=== PATIENT | male | born 1985 | race Caucasian/White ===

== ENCOUNTER 2021-09-24 12:00 | Emergency (ER) | payer MEDICAID ==
[~2021-09-24] VITALS: Ht 170.2 cm; Wt 96.6 kg
[2021-09-24 12:40] VITALS: BP 124/76
--- NOTE | 2021-09-24 12:45 | NUR ---
PT AMBULATED WITH STEADY GAIT TO [facility]
--- NOTE | 2021-09-24 13:00 | NUR ---
36 Y/O MALE BIB SELF C/O OF DIZZINESS, NAUSEA, ALONSO X4DAYS. BS 274 NKA PMH: "MAYBE DIABETES"
[2021-09-24 14:11] LABS: BASOPHILS # (AUTO) 0.1 K/uL (0.00-0.22); BASOPHILS % (AUTO) 0.7 % (0.0-2.0); EOSINOPHILS # (AUTO) 0.1 K/uL (0-0.4); EOSINOPHILS % (AUTO) 0.7 % (0.0-4.0); HEMATOCRIT 49.6 % (36-52); HEMOGLOBIN 17.3 g/dL (12.0-18.0); LYMPHOCYTES # (AUTO) 2.5 K/uL (2.0-11.5); LYMPHOCYTES % (AUTO) 30.3 % (20.5-51.1); MEAN CORPUSCULAR HEMOGLOBIN 33 pg (27-31); MEAN CORPUSCULAR HGB CONC 35 g/dL (33-37); MEAN CORPUSCULAR VOLUME 95.6 fL (80-94); MONOCYTES # (AUTO) 0.6 K/uL (0.8-1.0); MONOCYTES % (AUTO) 7.4 % (1.7-9.3); NEUTROPHILS # (AUTO) 5.1 K/uL (1.8-7.7); NEUTROPHILS % (AUTO) 60.9 % (42.2-75.2); PLATELET COUNT (AUTO) 228 K/uL (140-450); RED BLOOD CELL COUNT(AUTO) 5.18 MIL/uL (4.20-6.10); RED CELL DISTRIBUTION WIDTH 12.2 % (11.6-13.7); WHITE BLOOD COUNT (AUTO) 8.4 K/uL (4.8-10.8)
--- NOTE | 2021-09-24 14:25 | NUR ---
PT STATES DECREASE IN DIZZINESS AND ALONSO
[2021-09-24 14:30] LABS: ANION GAP 11.6 (8-16); CARBON DIOXIDE 29.6 mmol/L (21-32); CREATININE 0.8 mg/dL (0.6-1.3); POTASSIUM 4.2 mmol/L (3.5-5.1); TOTAL BILIRUBIN 1.4 mg/dL (0.0-1.0)
[2021-09-24 15:02] LABS: APPEARANCE,URINE CLEAR (CLEAR); BILIRUBIN,URINE NEGATIVE (NEGATIVE); BLOOD, URINE NEGATIVE (NEGATIVE); COLOR,URINE YELLOW (YELLOW); LEUKOCYTE ESTERASE ,URINE NEGATIVE (NEGATIVE); NITRITE, URINE NEGATIVE (NEGATIVE); UGLUCOSE 2+ (NEGATIVE)
--- NOTE | 2021-09-24 15:23 | NUR ---
Patient discharged with v/s stable. Written and verbal after care instructions ABOUT HYPERGLYCEMIA, ALANINE AND ASPARTATE TEST given and explained. Patient verbalized understanding. Ambulatory with steady gait. All questions addressed prior to discharge. Advised to follow up with PMD.
== END 2021-09-24 15:23 | disposition home or self-care (01) ==
LOC: MED 12:00
DX: R73.9 Hyperglycemia, unspecified (principal); R74.01 Elevation of levels of liver transaminase levels; R42 Dizziness and giddiness; R11.0 Nausea; R19.7 Diarrhea, unspecified
CPT/HCPCS: 36415; 80053; 81002; 81003; 85025; 99283

== ENCOUNTER 2021-10-15 11:22 | Emergency (ER) | payer MEDICAID ==
[~2021-10-15] VITALS: Ht 167.6 cm; Wt 94.3 kg
[2021-10-15 11:28] VITALS: BP 141/96
[2021-10-15] MEDS ORDERED: ACETAMINOPHEN 325 MG TAB PO ONE (12:25)
--- NOTE | 2021-10-15 12:39 | NUR ---
AMBULATED TO BED 11
--- NOTE | 2021-10-15 12:39 | NUR ---
PT AMBULATED TO BED 11.
--- NOTE | 2021-10-15 13:00 | NUR ---
36 Y/O MALE BIB SELF C/O VERTIGO X2 DAYS, DENIES VISION CHANGES, NUMBNESS OR TINGLING, STATES BEING SEEN LAST WEEK FOR SAME SYMPTOMS AND D/C HOME. COMPLIANT WITH MEDS, DENIES N/V/ALONSO PMH: HEP A, HTN, DM NKA
--- NOTE | 2021-10-15 13:26 | NUR ---
Patient discharged with v/s stable. Written and verbal after care instructions ABOUT VERTIGO given and explained. Patient verbalized understanding. Ambulatory with steady gait. All questions addressed prior to discharge. Advised to follow up with PMD.
--- NOTE | 2021-10-15 18:41 | NUR ---
Note bell in EDM - 10/15/21 at 1842 by PASQUALE Patient discharged with v/s stable. Written and verbal after care instructions ABOUT VERTIGO given and explained. Patient verbalized understanding. Ambulatory with steady gait. All questions addressed prior to discharge. Advised to follow up with PMD.
== END 2021-10-15 13:26 | disposition home or self-care (01) ==
LOC: MED 11:22
DX: R42 Dizziness and giddiness (principal)
CPT/HCPCS: 93005; 99283